=== PATIENT | female | born 1975 | race Caucasian/White ===

== ENCOUNTER → 2017-10-12 | Outpatient (CLI) | payer MEDICAID | LOC: FIMAGING 13:04 | PROVIDERS: ATTEND Family Medicine | DX: Z12.31 Encounter for screening mammogram for malignant neoplasm of breast (principal) | CPT/HCPCS: G0202 ==

== ENCOUNTER → 2018-04-19 | Outpatient (CLI) | payer MEDICAID | LOC: FIMAGING 15:29 | DX: N83.292 Other ovarian cyst, left side (principal) ==

== ENCOUNTER 2018-08-06 13:18 | Emergency (ER) | payer MEDICAID ==
--- NOTE | 2018-08-06 14:13 | EDPHY ---
HPI/HX/ROS/PE/MDM Narrative: CHIEF COMPLAINT: Pelvic pain, vaginal bleeding. HISTORY OF PRESENT ILLNESS: This patient is a 43 year old female with history of ovarian cyst complaining of pelvic pain and abnormal vaginal bleeding. She has followed up for her ovarian cysts with Dr. Stephens. She has had pain in the same place in her LLQ for months. This occasionally radiates down her legs, primarily left. Additionally, starting 08/04, she has had unusual bright red vaginal bleeding. She had a normal menstrual cycle in late June. She denies history of clotting disorders or of DVT/PE. No dysuria, hematuria. Food does not exacerbate or relieve her symptoms. She denies personal history of kidney stones, endorses family history of kidney stones in her father. The patient additionally complains of left-sided chest pain. This can be both posterior and anterior. It is not worse with deep inspiration. She has followed up with chiropractor for musculoskeletal pain on the left particularly in her low back and hip. Her discomfort in those areas today feels different from this. No fever, chills, shortness of breath, palpitations, vomiting, diarrhea, urinary complaints, headache, lightheadedness. REVIEW OF SYSTEMS: A comprehensive 10 system review of systems is otherwise negative aside from elements mentioned in the history of present illness and medical decision making. PAST MEDICAL HISTORY: Low-dose Seroquel. Levothyroxine. SOCIAL HISTORY: . Self-employed. Does not abuse tobacco, drugs, or alcohol. VITAL SIGNS: Reviewed by me GENERAL: Well-developed, well-nourished, resting comfortably in no respiratory distress. HEENT: Atraumatic. Eyes: No icterus, no injection. Mouth: moist mucous membranes. No erythema or lesions. Neck: supple with no adenopathy. LUNGS: Clear to auscultation bilaterally, no wheezes, rhonchi or rales. CARDIAC: Regular rate and rhythm, no rubs, murmurs or gallops. ABDOMEN: Tenderness over LLQ and left adnexa. Soft, nondistended, bowel sounds normal. BACK: Left flank tenderness. EXTREMITIES: No trauma. No edema. Range of motion is normal throughout. NEURO: Alert and oriented, grossly nonfocal. SKIN: Warm and dry, no rash. PSYCHIATRIC: Normal mentation, no agitation. Portions of this note were transcribed by a claim review medical director. I personally performed a history, physical exam, medical decision making, and confirmed accuracy of information the transcribed note. ED Course: 43 y/o female presents with left-sided pelvic pain and abnormal vaginal bleeding. On exam, the patient has LLQ and left adnexal tenderness to palpation , left flank tenderness. Plan for CT abdomen/pelvis to r/o acute intraabdominal processes. She took 400mg ibuprofen around 7-8am for pain relief. Plan to administer 30mg IV Toradol for pain relief. Plan for labs including CBC, chemistries, UA, BHCG. Reviewed prior pelvic US report from 06/17/18. This showed stable echogenic complex cystic lesion in the left ovary measuring 1.4 x 1.2 x 1.1 cm, new complex cyst left ovary measuring 1.6 x 1.6 x 1.3 cm. 16:[address] Rachel, radiologist. CT abdomen/pelvis negative for acute processes. Labs largely unremarkable. BHCG negative. 17:[address] Niño, radiologist. US pelvis negative for acute processes. Reassessed patient. Discussed imaging and laboratory results. There is no clear cause of her vaginal bleeding identified on the ultrasound. Plan to discharge home in good condition. I recommended close followup with her FUR CUTTING MACHINE OPERATOR. She will take ibuprofen for pain, inflammation, anti-prostaglandin effects. Prescription for Girdwood provided for severe pain. She will follow up with her PCP and gastroenterology regarding her abdominal pain. Discussed return precautions. She is comfortable with this plan. MDM: The differential diagnosis for the patient's abdominal pain was considered including but not limited to ovarian cyst, pelvic inflammatory disease, ovarian torsion, urinary tract infection, related complications, and bowel etiology. - Data Points Imaging Results: Abdomen CT 08/06/18 14:31 Impression: Negative for acute abdominopelvic process. Findings and recommendations discussed with Jillian Velasco MD at 1615 hour, 09/2018. Pelvic/Renal Ultrasound 08/06/18 16:25 Impression: 1. No acute findings in the pelvis. 2. Minimal decrease in size of a complex left ovarian cyst, suggesting a benign etiology. Findings discussed with Jillian Velasco M.D., on August 06, 2018 at 1721. Imaging: Discussed imaging studies w/ order caller Radiologist Laboratory Results: Laboratory Results 08/06/18 14:20 08/06/18 14:20 Medications Given: Discontinued Medications Ketorolac Tromethamine (Toradol) 30 mg IVP EDNOW ONE Stop: 08/06/18 14:33 Last Admin: 08/06/18 14:46 Dose: 30 mg General Time Seen by Provider: 08/06/18 14:03 Initial Vital Signs: Initial Vital Signs Temperature (C) 37 C 08/06/18 13:29 Heart Rate 73 08/06/18 13:29 Respiratory Rate 20 08/06/18 13:29 Blood Pressure 108/74 08/06/18 13:29 O2 Sat (%) 100 08/06/18 13:29 O2 Delivery Mode Room Air Allergies/Adverse Reactions: No Known Allergies Allergy (Verified 08/06/18 13:28) Home Medications: Medication Instructions Recorded Albuterol Hfa Anes Only [Proair 11/26/13 Hfa Icu (*)] Levothyroxine [Synthroid 25 mcg 25 mcg PO DAILY06 11/26/13 (*)] Hydrocodone/APAP 5/325 [Girdwood 1 - 2 tab PO Q6H PRN #10 tab 08/06/18 5/325 (*)] Seroquel 08/06/18 Departure - Departure Disposition: Home, Routine, Self-Care Clinical Impression: Abdominal pain, Vaginal bleeding Condition: Good Instructions: Hydrocodone/Acetaminophen (By mouth), Dysfunctional Uterine Bleeding (ED), Acute Abdominal Pain (ED) Additional Instructions: There is no clear cause of your vaginal bleeding identified on the ultrasound. I would recommend close follow-up with your OBGYN doctors and consider potential hormonal therapy. You may take ibuprofen 400-600 mg every 6-8 hours around the clock to help with pain, inflammation, as well as anti prostaglandin effects. This may help decrease the bleeding. For your lower abdominal pain, I recommend plenty of fluid, well-balanced diet, and follow up with your primary care physician and Gastroenterology. Please follow up with the recruiter manager as previously directed for colonoscopy. Referrals: Mechelle Kinney MD [Primary Care Provider] - As per Instructions Prescriptions: Hydrocodone/APAP 5/325 [Girdwood 5/325 (*)] 1 - 2 tab PO Q6H PRN #10 tab PRN Reason: PAIN Report Scribed for: Jillian Velasco Report Scribed by: Becca Perez Date of Report: 08/06/18 Time of Report: 14:55
[2018-08-06] MEDS ORDERED: KETOROLAC 30 MG/1 ML SDV IVP ONE (14:32)
[2018-08-06 15:34] LABS: PLATELET COUNT 246 10^3/uL (150-400)
[2018-08-06] MEDS ORDERED: IOPAMIDOL (ISOVUE-300) 100 ML BTL ONE (15:46)
[2018-08-06 17:45] VITALS: BP 118/70
== END 2018-08-06 17:45 | disposition home or self-care (01) ==
DX: R10.2 Pelvic and perineal pain (principal); N83.202 Unspecified ovarian cyst, left side
CPT/HCPCS: 96374; J1885; Q9967